=== PATIENT | male | born 1945 | race Caucasian/White ===

== ENCOUNTER 2018-02-14 10:17 | Day surgery (SDC) | payer MEDICARE ==
[2018-02-13 16:52] VITALS: BMI 26.6
[2018-02-14 11:32] LABS: #Basophils 0.1 thou/uL (0.0-0.2); #Eosinphils 0.4 thou/uL (0.0-0.7); #Neutrophils 7.7 thou/uL (1.40-6.50); %Basophils 0.6 % (0.0-1.0); %Eosinophils 3.6 % (0.0-10.0); %Lymphocytes 17.8 % (21.0-51.0); %Monocytes 8.7 % (0.0-10.0); %Neutrophils 69.2 % (42.0-75.0); Hemoglobin 15.6 g/dL (14.0-18.0); Mean Corpuscular HGB CONC 34.1 g/dL (32.0-36.0); Mean Corpuscular Volume 96.7 fl (80.0-94.0); Mean Platelet Volume 7.4 fL (7.4-10.4); Platelet Count 326 thou/uL (130-400); RBC Distribution Width 11.8 % (11.5-14.5); Red Blood Cell (RBC) Count 4.73 mill/uL (4.70-6.10); White Blood Cell (WBC) Count 11.1 thou/uL (4.8-10.8)
[2018-02-14] MEDS ORDERED: Bupivacaine PF 0.5% 30 ML VIAL ONE (14:58)
[2018-02-14] MEDS ORDERED: Bacitracin Zinc Ointment 30 gm TUBE ONE (14:58)
[2018-02-14] MEDS ORDERED: Betamet Acet/Betamet Na Ph 30 MG/5 ML VIAL ONE (14:58)
[2018-02-14] MEDS ORDERED: CEFAZOLIN/Water 2 GM/20 ML SYRINGE ONE (15:26)
[2018-02-14] MEDS ORDERED: Ketorolac Tromethamine 30 MG/ML VIAL ONE ×2 (16:10→16:27)
[2018-02-14] MEDS ORDERED: Metoclopramide HCl 10 MG/2 ML VIAL ONE (16:10)
[2018-02-14] MEDS ORDERED: PROPOFOL 200 MG/20 ML VIAL ONE (16:10)
[2018-02-14] MEDS ORDERED: Ondansetron HCl/PF 4 MG/2 ML Vial ONE (16:10)
[2018-02-14] MEDS ORDERED: Dexamethasone 20 MG/5 ML VIAL ONE (16:10)
[2018-02-14] MEDS ORDERED: Lidocaine 1% PF 5 ML VIAL ONE (16:10)
--- NOTE | 2018-02-15 12:51 | OP ---
PREOPERATIVE DIAGNOSIS: Right ring finger A1 curry trigger. POSTOPERATIVE DIAGNOSES: 1. Right finger A1 curry trigger. 2. 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 PROCEDURES PERFORMED: 1. Right ring finger A1 curry release. 2. Right ring finger flexor digitorum and profundus tenosynovectomy. SPECIMEN: None. BLOOD LOSS: 10 mL. TOURNIQUET TIME: 10 minutes. FINDINGS: As above. DESCRIPTION OF PROCEDURE: After successful general LMA technique by [employer] [facility], the area wa s prepped and draped. Time out was done appropriately and then we outlined a curvilinear longitudina l incision along the radial border of the ring finger A1 curry centered on the flexor crease at this level 5 mm distal and proximal to this. We finished injection of 10 mL 0.5% Marcaine, then gave the patient and exsanguination and inflated the tourniquet to 250 mmHg pressure. We entered the incisio n with a sharp knife through skin, subcutaneous tissue identified with sharp dissection with a tenot patricia scissor, the neurovascular bundles were protected them from the field. We then released tight ba nds over what was swollen, tender synovium proximal to the flexor curry. We then identified the A1 curry, releasing it entirely down to interface with the A2 curry. We then flexed and extended the tendon and found there was some tenosynovectomy more significant than expected, so we performed a rad ical flexor tenosynovectomy of the flexor digitorum profundus and superficialis at this level. ReleaseD the tourniquet, placed 3 mL of Celestone closed with interrupted 4-0 nylon mattress pattern. A bulky dressing was applied. The patient left the operating room with the dressing on and there w as no evidence of anesthetic or operative complications.
== END 2018-02-14 17:45 | disposition home or self-care (01) ==
LOC: SDC 10:17
PROVIDERS: ATTEND Orthopaedic Surgery Hand Surgery
PROC: 0LN70ZZ Release Right Hand Tendon, Open Approach (ICD-10-PCS; principal; 2018-02-14)
PROC: 0LB70ZZ Excision of Right Hand Tendon, Open Approach (ICD-10-PCS; 2018-02-14)
DX: M65.341 Trigger finger, right ring finger (principal); M65.841 Other synovitis and tenosynovitis, right hand; E78.00 Pure hypercholesterolemia, unspecified; Z79.82 Long term (current) use of aspirin; Z79.899 Other long term (current) drug therapy
CPT/HCPCS: 36415; 85025; 96374; J0131; J0702; J1100; J1885; J2001; J2405; J2704; J2765; S0020

== ENCOUNTER 2019-10-15 13:21 | Outpatient (CLI) | payer MEDICARE ==
--- NOTE | 2019-10-15 16:42 | MRI ---
RIGHT SHOULDER MRI WITHOUT IV CONTRAST: History: Tear of rotator cuff, right shoulder pain with limited range of motion. FINDINGS: Multiplanar, multisequence MRI examination of the right shoulder is performed. There are AC joint art hrosis changes with minimal fluid and fat stranding in the subacromial bursa. There is a midgrade par tial thickness undersurface tear of the supraspinatus tendon with some very minimal delamination. Sub chondral cystic changes are noted involving the anterior greater tuberosity. Infraspinatus tendon domenico ears intact as does the biceps and subscapularis tendons. There is evidence for abnormal signal assoc iated with the superior labrum extending from anterior to posterior, evidence for a slap tear. No acu te osteochondral defect. Rotator cuff muscles are within normal limits of signal and volume. IMPRESSION: Slap tear with anterior and posterior extension. Partial thickness undersurface tear of the supraspin atus tendon. AC joint arthrosis. POS: [facility]
== END 2019-10-15 13:22 | disposition home or self-care (01) ==
LOC: BICMRI 13:21
PROVIDERS: ATTEND Orthopaedic Surgery
DX: M75.111 Incomplete rotator cuff tear or rupture of right shoulder, not specified as traumatic (principal); S43.431A Superior glenoid labrum lesion of right shoulder, initial encounter